=== PATIENT | female | born 1990 | race Caucasian/White ===

== ENCOUNTER 2017-08-01 14:42 | Day surgery (SDC) | payer OTHER ==
[~2017-08-01] VITALS: Ht 172.7 cm; Wt 59.0 kg
[2017-08-01] MEDS ORDERED: LACTATED RINGERS 1,000 ML IV SCH (15:15)
[2017-08-01 15:17] VITALS: BP 104/68
[2017-08-01] MEDS ORDERED: PREN1TAB84 PO (15:21)
[2017-08-01] MEDS ORDERED: LIDOCAINE 1%, 2ML SQ PRN (15:30)
[2017-08-01] MEDS ORDERED: LIDOCAINE 1%, 2ML ONE (15:31)
[2017-08-01 15:47] LABS: BASOPHILS # (AUTO) 0.04 x10^3/uL (0-0.1); BASOPHILS % (AUTO) 1 % (0-1); EOSINOPHILS # (AUTO) 0.05 x10^3/uL (0-0.4); EOSINOPHILS % (AUTO) 1 % (1-7); LYMPHOCYTES # (AUTO) 2.31 x10^3/uL (1-3.4); LYMPHOCYTES % (AUTO) 36 % (22-44); MD NO; MEAN CORPUSCULAR HEMOGLOBIN 29.8 pg (27.0-34.8); MEAN CORPUSCULAR HGB CONC 33.6 g/dL (32.4-35.8); MEAN CORPUSCULAR VOLUME 88.6 fL (80-100); MEAN PLATELET VOLUME 7.9 fL (7.4-10.4); MONOCYTES # (AUTO) 0.29 x10^3/uL (0.2-0.8); MONOCYTES % (AUTO) 5 % (2-9); NEUTROPHILS % (AUTO) 58 % (42-75); PLATELET COUNT 190 x10^3/uL (130-400); RED BLOOD COUNT 4.33 x10^6/uL (3.82-5.3); RED CELL DISTRIBUTION WIDTH 12.9 % (9.6-15.2)
[2017-08-01] MEDS ORDERED: MIDAZOLAM 1 MG/ML, 2ML ONE (16:52)
[2017-08-01] MEDS ORDERED: FENTANYL PF 100 MCG/2ML ONE ×2 (16:52→17:30)
[2017-08-01] MEDS ORDERED: HYDROmorphone 1 MG/ML, 1ML IV PRN (17:00)
[2017-08-01] MEDS ORDERED: MEPERIDINE/PF 25MG/0.5ML IVPush PRN (17:00)
[2017-08-01] MEDS ORDERED: ONDANSETRON 2MG/ML, 2ML IVPush PRN (17:00)
[2017-08-01] MEDS ORDERED: KETOROLAC 30 MG/1 ML IV PRN (17:00)
[2017-08-01] MEDS ORDERED: OXYcodone 5 MG/5 ML ORAL.SOL UDC PO PRN (17:00)
[2017-08-01] MEDS ORDERED: FENTANYL PF 100 MCG/2ML IV PRN (17:00)
[2017-08-01] MEDS ORDERED: ACETAMINOPHEN 325 MG TABLET PO PRN (17:00)
[2017-08-01] MEDS ORDERED: OXYTOCIN 10 UNITS/ML, 1ML ONE (17:02)
[2017-08-01] MEDS ORDERED: METHYLERGONOVINE 0.2 MG/ML IM ONE (17:02)
[2017-08-01] MEDS ORDERED: MISOPROSTOL 200 MCG TABLET ONE (17:02)
[2017-08-01] MEDS ORDERED: DEXAMETHASONE 4 MG/ML, 1ML ONE (17:09)
[2017-08-01] MEDS ORDERED: CEFAZOLIN 1,000 MG ONE (17:09)
[2017-08-01] MEDS ORDERED: PROPOFOL 10 MG/ML, 20ML ONE (17:09)
[2017-08-01] MEDS ORDERED: ONDANSETRON 2MG/ML, 2ML ONE (17:09)
[2017-08-01] MEDS ORDERED: KETOROLAC 30 MG/1 ML ONE (17:09)
[2017-08-01] MEDS ORDERED: SILVER NITRATE STICK TP ONE (17:29)
[2017-08-01] MEDS ORDERED: ACETAMINOPHEN 650 MG/20.3 ML UDC ONE (17:56)
[2017-08-01] MEDS ORDERED: OXYcodone 5 MG/5 ML ORAL.SOL UDC ONE (17:57)
== END 2017-08-01 20:22 | disposition home or self-care (01) ==
LOC: OR 14:42 → 4NOR 18:39 → OR 20:22
PROVIDERS: ATTEND Obstetrics & Gynecology Gynecology
DX: O02.1 Missed abortion (principal); O08.9 Unspecified complication following an ectopic and molar pregnancy; D64.9 Anemia, unspecified; J45.909 Unspecified asthma, uncomplicated; Z98.890 Other specified postprocedural states; Z3A.00 Weeks of gestation of pregnancy not specified
CPT/HCPCS: 36415; 59820; 85025; 86850; 86900; 88305; J0690; J1100; J1885; J2250; J2405; J2704; J3010; J3490; J7120; J2210; J2590

== ENCOUNTER 2018-07-20 21:18 | Outpatient (CLI) | payer OTHER ==
[~2018-07-20] VITALS: Ht 172.7 cm; Wt 68.0 kg
[~2018-07-20 21:18] MED LIST: PREN1TAB84 PO
== END 2018-07-21 00:48 | disposition home or self-care (01) ==
LOC: LDOP 21:18
PROVIDERS: ATTEND Obstetrics & Gynecology Gynecology
DX: O62.9 Abnormality of forces of labor, unspecified (principal); Z3A.38 38 weeks gestation of pregnancy
CPT/HCPCS: 59025; 99211; G0463

== ENCOUNTER 2018-07-30 06:09 | Inpatient (IN) | payer BC, OTHER ==
[~2018-07-30] VITALS: Ht 172.7 cm; Wt 68.6 kg
[2018-07-30] MEDS ORDERED: OXYTOCIN 30U/ 0.9% NaCL 500ML 500 ML IV ONE (06:13)
[2018-07-30] MEDS ORDERED: D5%-LACTATED RINGERS 1,000 ML IV SCH (06:13)
[2018-07-30 06:21] VITALS: BP 97/53
[2018-07-30 06:30] LABS: BASOPHILS # (AUTO) 0.03 x10^3/uL (0-0.1); BASOPHILS % (AUTO) 0 % (0-1); EOSINOPHILS # (AUTO) 0.01 x10^3/uL (0-0.4); EOSINOPHILS % (AUTO) 0 % (1-7); LYMPHOCYTES # (AUTO) 1.89 x10^3/uL (1-3.4); LYMPHOCYTES % (AUTO) 22 % (22-44); MD NO; MEAN CORPUSCULAR HEMOGLOBIN 30.8 pg (27.0-34.8); MEAN CORPUSCULAR HGB CONC 33.4 g/dL (32.4-35.8); MEAN CORPUSCULAR VOLUME 92.5 fL (80-100); MEAN PLATELET VOLUME 7.7 fL (7.4-10.4); MONOCYTES # (AUTO) 0.38 x10^3/uL (0.2-0.8); MONOCYTES % (AUTO) 5 % (2-9); NEUTROPHILS # (AUTO) 6.14 x10^3/uL (1.8-6.8); NEUTROPHILS % (AUTO) 73 % (42-75); PLATELET COUNT 207 x10^3/uL (130-400); RED BLOOD COUNT 3.93 x10^6/uL (3.82-5.3); RED CELL DISTRIBUTION WIDTH 12.7 % (9.6-15.2)
[2018-07-30] MEDS ORDERED: TERBUTALINE 1 MG/ML, 1ML IVPush PRN ×2 (06:30)
[2018-07-30] MEDS ORDERED: FENTANYL PF 100 MCG/2ML IV PRN (06:30)
[2018-07-30] MEDS ORDERED: ONDANSETRON 2MG/ML, 2ML IVPush PRN (06:30)
[2018-07-30] MEDS ORDERED: FENTANYL PF 100 MCG/2ML IVPush PRN (06:30)
[2018-07-30] MEDS ORDERED: CALCIUM CARBONATE 500 MG TAB.CHEW PO PRN ×2 (06:30→16:30)
[2018-07-30] MEDS: LACTATED RINGERS 1,000 ML IV SCH ×3 (06:42→14:17)
[2018-07-30] MEDS ORDERED: OXYTOCIN 30U/ 0.9% NaCL 500ML 500 ML ONE (06:45)
[2018-07-30] MEDS ORDERED: OXYTOCIN 30U/ 0.9% NaCL 500ML 500 ML IV PRN (07:07)
[2018-07-30] MEDS ORDERED: FENTANYL PF 500 MCG, BUPIVACAINE/PF 0.5%, 30ML 62.5 ML in SODIUM CHLORIDE 0.9% 177.5 ML EPIDCONT SCH (12:38)
[2018-07-30] MEDS ORDERED: FENTANYL PF 100 MCG/2ML ONE (12:55)
[2018-07-30] MEDS ORDERED: BUPIVACAINE 0.25% ONE ×2 (13:21→14:16)
[2018-07-30] MEDS ORDERED: ONDANSETRON 2MG/ML, 2ML ONE (13:46)
[2018-07-30] MEDS ORDERED: OXYTOCIN 30U/ 0.9% NaCL 500ML 500 ML IV SCH (16:26)
[2018-07-30] MEDS ORDERED: MAGNESIUM HYDROXIDE 8%, 30ML UDC PO PRN (16:30)
[2018-07-30] MEDS ORDERED: ONDANSETRON 2MG/ML, 2ML IV PRN (16:30)
[2018-07-30] MEDS ORDERED: OXYcodone/APAP 5/325MG TABLET PO PRN (16:30)
[2018-07-30] MEDS ORDERED: RHOGAM FROM BLOOD BANK 1 NOTE EA IM/IV ONE (16:30)
[2018-07-30] MEDS ORDERED: DIPH,PERTUSS(ACELL),TET VAC/PF NC IM-VACC PRN (16:30)
[2018-07-30] MEDS ORDERED: MEASLES,MUMPS&RUBELLA VACC/PF 0.5 ML SQ-VACC PRN (16:30)
[2018-07-30] MEDS ORDERED: OXYcodone IR 5MG TABLET PO PRN (16:30)
[2018-07-30] MEDS ORDERED: MISOPROSTOL 200 MCG TABLET PR PRN (16:30)
[2018-07-30] MEDS ORDERED: IBUPROFEN 600 MG TABLET ONE (17:18)
[2018-07-30] MEDS: IBUPROFEN 600 MG TABLET PO PRN (17:20)
[2018-07-30] MEDS ORDERED: NEWBORN KIT ONE (17:23)
[2018-07-30 20:45] VITALS: BP 102/67
[2018-07-30 22:00] VITALS: BP 100/67
[2018-07-30 23:54] VITALS: BP 102/65
[2018-07-31 04:05] VITALS: BP 101/70
[2018-07-31] MEDS: IBUPROFEN 600 MG TABLET PO PRN ×4 (04:17→23:10)
[2018-07-31 04:37] LABS: BASOPHILS # (AUTO) 0.05 x10^3/uL (0-0.1); BASOPHILS % (AUTO) 0 % (0-1); EOSINOPHILS # (AUTO) 0.02 x10^3/uL (0-0.4); EOSINOPHILS % (AUTO) 0 % (1-7); LYMPHOCYTES # (AUTO) 1.99 x10^3/uL (1-3.4); LYMPHOCYTES % (AUTO) 17 % (22-44); MD NO; MEAN CORPUSCULAR HEMOGLOBIN 30.8 pg (27.0-34.8); MEAN CORPUSCULAR HGB CONC 33.5 g/dL (32.4-35.8); MEAN PLATELET VOLUME 8.3 fL (7.4-10.4); MONOCYTES # (AUTO) 0.62 x10^3/uL (0.2-0.8); MONOCYTES % (AUTO) 5 % (2-9); NEUTROPHILS # (AUTO) 9.25 x10^3/uL (1.8-6.8); NEUTROPHILS % (AUTO) 78 % (42-75); PLATELET COUNT 219 x10^3/uL (130-400); RED BLOOD COUNT 3.65 x10^6/uL (3.82-5.3); RED CELL DISTRIBUTION WIDTH 12.7 % (9.6-15.2)
[2018-07-31 08:50] VITALS: BP 102/63
[2018-07-31] MEDS: DOCUSATE 100 MG CAPSULE PO PRN ×2 (09:11→23:10)
[2018-07-31] MEDS: PRENATAL VIT/IRON/FA 1 EACH TABLET PO SCH (09:12)
[2018-07-31 13:00] VITALS: BP 97/63
[2018-07-31 20:08] VITALS: BP 94/59
[2018-08-01] MEDS: IBUPROFEN 600 MG TABLET PO PRN ×2 (05:14→11:29)
[2018-08-01 08:10] VITALS: BP 102/66
[2018-08-01] MEDS: PRENATAL VIT/IRON/FA 1 EACH TABLET PO SCH (09:00)
[2018-08-01] MEDS ORDERED: IBUP-1222 PO (13:02)
== END 2018-08-01 14:29 | disposition home or self-care (01) | DRG 805 ==
LOC: LDIP 06:09 → 2NW 20:37
PROVIDERS: ADMIT Obstetrics & Gynecology Gynecology; ATTEND Obstetrics & Gynecology Gynecology
PROC: 10E0XZZ Delivery of Products of Conception, External Approach (ICD-10-PCS; principal; 2018-07-30)
PROC: 3E033VJ Introduction of Other Hormone into Peripheral Vein, Percutaneous Approach (ICD-10-PCS; 2018-07-30)
PROC: 3E0R3BZ Introduction of Anesthetic Agent into Spinal Canal, Percutaneous Approach (ICD-10-PCS; 2018-07-30)
PROC: 00HU33Z Insertion of Infusion Device into Spinal Canal, Percutaneous Approach (ICD-10-PCS; 2018-07-30)
DX: O75.89 Other specified complications of labor and delivery (principal); Q93.81 Velo-cardio-facial syndrome; Z37.0 Single live birth; Z3A.40 40 weeks gestation of pregnancy
CPT/HCPCS: 36415; 82803; 85025; 86850; 86900; G0378; J3010; J2590; J7120

== ENCOUNTER 2020-07-12 16:47 | Observation (INO) | payer BC, OTHER ==
[~2020-07-12] VITALS: Ht 172.7 cm; Wt 56.3 kg
[~2020-07-12 16:47] MED LIST changes: +IBUP-1222 PO
[2020-07-12] MEDS ORDERED: ONDANSETRON 2MG/ML, 2ML IVPush PRN (17:00)
[2020-07-12] MEDS ORDERED: LACTATED RINGERS 1,000 ML IV SCH (17:00)
[2020-07-12] MEDS ORDERED: D5%-LACTATED RINGERS 1,000 ML IV SCH (17:00)
[2020-07-12] MEDS ORDERED: ONDANSETRON 2MG/ML, 2ML ONE (17:17)
[2020-07-12 17:24] LABS: BASOPHILS % (AUTO) 0 % (0-1); EOSINOPHILS % (AUTO) 0 % (1-7); LYMPHOCYTES % (AUTO) 15 % (22-44); MEAN CORPUSCULAR HEMOGLOBIN 30.7 pg (27.0-34.8); MEAN CORPUSCULAR HGB CONC 34.8 g/dL (32.4-35.8); MEAN PLATELET VOLUME 8.3 fL (7.4-10.4); MONOCYTES % (AUTO) 4 % (2-9); NEUTROPHILS % (AUTO) 82 % (42-75); PLATELET COUNT 184 x10^3/uL (130-400); RED BLOOD COUNT 4.11 x10^6/uL (3.82-5.3)
[2020-07-12 17:29] VITALS: BP 100/62
[2020-07-12 17:29] LABS: MD NO
[2020-07-12 17:35] LABS: ALANINE AMINOTRANSFERASE 22 U/L (12-78); ANION GAP 7 mmol/L (5-15); CALCIUM 9.3 mg/dL (8.5-10.1); CHLORIDE 107 mmol/L (98-107); CREATININE 0.59 mg/dL (0.55-1.02)
[2020-07-12 17:37] LABS: ALKALINE PHOSPHATASE 41 U/L (45-117); BILIRUBIN,TOTAL 0.8 mg/dL (0.2-1.0); TOTAL PROTEIN 7.7 g/dL (6.4-8.2)
[2020-07-12 17:56] LABS: MICROSCOPIC INDICATED
[2020-07-12] MEDS ORDERED: FLU VACC QS2020-21(6MOS UP)/PF 60MCG/0.5 ML SYR IM-VACC ONE (18:00)
== END 2020-07-12 19:05 | disposition home or self-care (01) ==
LOC: LDOP 16:47 → LDIP 16:59
PROVIDERS: ADMIT Obstetrics & Gynecology Maternal & Fetal Medicine; ATTEND Obstetrics & Gynecology Maternal & Fetal Medicine
DX: O21.9 Vomiting of pregnancy, unspecified (principal); Z20.828 Contact with and (suspected) exposure to other viral communicable diseases; O12.01 Gestational edema, first trimester; O99.611 Diseases of the digestive system complicating pregnancy, first trimester; K59.00 Constipation, unspecified; Z3A.12 12 weeks gestation of pregnancy; Z79.899 Other long term (current) drug therapy; Z23 Encounter for immunization
CPT/HCPCS: 36415; 80053; 81001; 85025; 87086; 87635; 90471; 90686; 96361; 96374; 99211; G0378; J2405; J7120; J7121; 96360; 96372; G0463

== ENCOUNTER 2020-07-30 20:19 | Emergency (ER) | payer OTHER ==
[~2020-07-30] VITALS: Ht 172.7 cm; Wt 57.4 kg
[2020-07-30] MEDS ORDERED: SODIUM CHLORIDE 0.9% 1,000ML IVBOLUS ONE (21:00)
[2020-07-30] MEDS ORDERED: SODIUM CHLORIDE FLUSH 10ML SYR IVF ONE (21:00)
--- NOTE | 2020-07-30 21:08 | NUR ---
Pt states she is 15 wk , and is having bleeding at this time. Per pt she had a large gush out into her jeans. Pt also reports that at 9 weeks she had a gush of blood and spotted for weeks after. Subchoreonic bleed per MD. Pt reports this time there is more blood. Per pt no pain, but mild cramping in bilat lower abd quadrants. [facility], monitoring in place, ema at this time, at bedside, [facility].
--- NOTE | 2020-07-30 21:15 | NUR ---
PT TO ULTRASOUND AT THIS TIME VIA [facility].
[2020-07-30 21:17] LABS: BASOPHILS % (AUTO) 0 % (0-1); EOSINOPHILS % (AUTO) 1 % (1-7); LYMPHOCYTES % (AUTO) 22 % (22-44); MEAN CORPUSCULAR HEMOGLOBIN 31.3 pg (27.0-34.8); MEAN CORPUSCULAR HGB CONC 35.3 g/dL (32.4-35.8); MONOCYTES % (AUTO) 4 % (2-9); NEUTROPHILS % (AUTO) 73 % (42-75); PLATELET COUNT 204 x10^3/uL (130-400); RED CELL DISTRIBUTION WIDTH 13.5 % (9.6-15.2)
[2020-07-30 21:27] LABS: MD NO
--- NOTE | 2020-07-30 22:05 | NUR ---
PT UNABLE TO PROVIDE URINE SAMPLE AT THIS TIME. JADON AUGUSTIN AWARE AND IS OKAY WITHOUT GETTING URINE SAMPLE.
[2020-07-30 22:43] VITALS: BP 107/68
== END 2020-07-30 23:20 | disposition home or self-care (01) ==
LOC: ED 23:00
DX: O46.92 Antepartum hemorrhage, unspecified, second trimester (principal); E86.0 Dehydration; Z79.899 Other long term (current) drug therapy; Z3A.15 15 weeks gestation of pregnancy
CPT/HCPCS: 36415; 76815; 85025; 86901; 99284